=== PATIENT | female | born 1970 | race Caucasian/White ===

== ENCOUNTER 2020-07-03 18:16 | Emergency (ER) | payer BC, OTHER ==
[~2020-07-03] VITALS: Ht 160 cm; Wt 48.5 kg
--- NOTE | 2020-07-03 18:56 | NUR ---
BIBFAMILY FROM HOME TO ER BED 11. AAOX4. NOT IN RESP DISTRESS. AMBULATORY. CAME IN FOR PALPITATION 1ND TO BEING ANXIOUS. PT REPORTS THAT SHE HAS BEEN AXIOSU FOR THE PAST 2 WEEKS. AND STARTED WELLBUTRIN 1 WEEK AGO FOR THE ANXIETY. PT ALSO REPORTS THAT SHE JUST STARTED TO QUITING SMOKING AND IT HAS BEEN A WEEK ALREADY. PT IS INDEED ANXIOUS UPON PRESENTATION, TAUGHT BREATHING EXERCISE TO HEL ALLEVIATED THE ANXIETY. AWAITING MD FOR EVAL.
--- NOTE | 2020-07-03 18:57 | NUR ---
SALES PROFESSIONAL BILINGUAL DEGRASSE AT BEDSIDE
[2020-07-03] MEDS ORDERED: IV NS 0.9% 1,000 ML BAG IV ONE (19:00)
[2020-07-03] MEDS ORDERED: LORAZEPAM INJ 2 MG/ML VIAL IV ONE (19:00)
[2020-07-03] MEDS ORDERED: LORAZEPAM INJ 2 MG/ML VIAL ONE (19:04)
--- NOTE | 2020-07-03 19:09 | NUR ---
CLIENT SUPPORT CONSULTANT AT BEDSIDE
[2020-07-03 19:24] LABS: BASOPHILS % (AUTO) 0.6 % (0.0-2.0); EOSINOPHILS % (AUTO) 1.7 % (0.0-6.0); HEMATOCRIT 41 % (33-45); HEMOGLOBIN 13.3 g/dL (11.5-14.8); LYMPHOCYTES # (AUTO) 1.4 /CMM (0.8-4.8); MEAN CORPUSCULAR HGB CONC 33 g/dl (31.0-36.0); MEAN CORPUSCULAR VOLUME 79 fL (82-100); MONOCYTES # (AUTO) 0.5 /CMM (0.1-1.30); MONOCYTES % (AUTO) 7.3 % (2.0-12.0); NEUTROPHILS # (AUTO) 5.4 /CMM (1.8-8.9); NEUTROPHILS % (AUTO) 71.4 % (43.0-81.0); PLATELET COUNT (AUTO) 229 /CMM (150-450); RED BLOOD CELL COUNT(AUTO) 5.11 MIL/uL (4.0-5.2); WHITE BLOOD COUNT (AUTO) 7.5 K/uL (4.3-11.0)
[2020-07-03 19:37] LABS: ALANINE AMINOTRANSFERASE 16 U/L (12-78); ALBUMIN 4.2 g/dL (3.4-5.0); ALKALINE PHOSPHATASE 67 U/L (46-116); ASPARTATE AMINOTRANSFERASE 14 U/L (15-37); BILIRUBIN,DIRECT 0.1 mg/dL (0.0-0.2); BILIRUBIN,TOTAL 0.2 mg/dL (0.2-1.0); CALCIUM, SERUM 9.3 mg/dL (8.5-10.1); CARBON DIOXIDE 27 mmol/L (21-32); CHLORIDE 103 mmol/L (98-107); GLUCOSE 109 mg/dL (74-106); POTASSIUM 3.7 mmol/L (3.5-5.1); SODIUM SERUM 140 mmol/L (136-145); UREA NITROGEN, BLOOD 22 mg/dL (7-18)
--- NOTE | 2020-07-03 20:15 | NUR ---
PT VERBALIZED THAT SHE IS FEELING BETTER. NO FURTHER C/O PALPITATION. ANXIETY IS BETTER.
[2020-07-03 20:22] VITALS: BP 113/77
--- NOTE | 2020-07-03 20:22 | NUR ---
Patient discharged to home in stable condition. Written and verbal after care instructions given. Patient verbalizes understanding of instruction.IV removed. Catheter intact and site benign. Pressure and 4x4 applied to site. No bleeding noted. Pt ambulatory with a steady gait
== END 2020-07-03 20:23 | disposition home or self-care (01) ==
LOC: ER 18:25
DX: R00.2 Palpitations (principal); G47.00 Insomnia, unspecified; F41.9 Anxiety disorder, unspecified; R91.8 Other nonspecific abnormal finding of lung field; F17.210 Nicotine dependence, cigarettes, uncomplicated
CPT/HCPCS: 36415; 71045; 80048; 80076; 84443; 84484; 84703; 85025; 93005; 96361; 96374; 99285; 99406; J2060; J7030